=== PATIENT | male | born 1945 | race Caucasian/White ===

== ENCOUNTER 2021-04-16 00:20 | Emergency (ER) | payer OTHER ==
[~2021-04-16] VITALS: Ht 182.9 cm; Wt 90.7 kg
[2021-04-16 00:58] LABS: HEMOGLOBIN 14.5 gm/dl (14.0-17.5); RED BLOOD COUNT 4.41 M/UL (4.20-5.50); WHITE BLOOD COUNT 14.4 K/UL (4.5-11.0)
[2021-04-16 01:23] LABS: BUN/CREATININE RATIO 17 (0-10)
== END 2021-04-16 13:55 | disposition short-term general hospital (02) ==
LOC: ER1 00:20 → CDU 02:18 → ER1 02:18
PROVIDERS: Emergency Medicine; Internal Medicine
DX: A41.9 Sepsis, unspecified organism (principal); R65.20 Severe sepsis without septic shock; J44.0 Chronic obstructive pulmonary disease with (acute) lower respiratory infection; J18.9 Pneumonia, unspecified organism; J96.20 Acute and chronic respiratory failure, unspecified whether with hypoxia or hypercapnia; N18.9 Chronic kidney disease, unspecified; E03.9 Hypothyroidism, unspecified; E78.5 Hyperlipidemia, unspecified; Z20.822 Contact with and (suspected) exposure to COVID-19
CPT/HCPCS: 0240U; 36600; 71045; 80048; 80053; 82550; 82553; 82803; 83605; 83690; 84484; 85025; 87040; 93005; 94640; 94660; 96374; 99285; J0696; J1956; J2543; J2920